=== PATIENT | male | born 1955 | race Caucasian/White ===

== ENCOUNTER 2022-03-19 19:08 | Emergency (ER) | payer MEDICARE, OTHER ==
[2022-03-19 20:01] VITALS: RESP 18; TEMP 97.7
[2022-03-19] MEDS ORDERED: LIDOCAINE 5% PATCH TOPICAL STA (20:27)
--- NOTE | 2022-03-19 20:33 | ED ---
General Adult HPI - General Chief complaint: Fall Stated complaint: Fal,rib injury,SOB Time Seen by Provider: 03/19/22 20:15 Source: patient, RN notes reviewed, old records reviewed Mode of arrival: ambulatory Limitations: no limitations - History of Present Illness Initial comments: Patient is a 66-year-old male with past medical history remarkable for diabetes, hypertension who presents in the department after mechanical fall. Patient states he tripped over the ventilation grate on the ground, and fell onto his right side. Landed on his right arm and chest. Landed on the ground inside his home. Denies hitting his head or experiencing loss of consciousness. Denies any back pain, abdominal pain, nausea, vomiting. Has been walking around ot [employer] since. His no other acute complaints. Presents emergency department today to be evaluated for possible rib injury or wrist injury. Denies loss conscious. His no blood thinners. Denies headache. Denies blurry vision. Presents for further evaluation at this time. Fall occurred shortly prior to arrival. - Related Data Home Medications Medication Instructions Recorded Confirmed Atenolol/Chlorthalidone 1 tab PO DAILY 12/01/13 12/01/13 [Atenolol/Chlorthalidone 100-25] Previous Rx's Medication Instructions Recorded metFORMIN HCL [Glucophage] 500 mg PO BID #60 tab 12/02/13 Lidocaine 5% Patch [Lidoderm 5% 1 patch TOPICAL DAILY PRN 7 Days 03/19/22 Patch] #7 patch Allergies Allergy/AdvReac Type Severity Reaction Status Date / Time No Known Allergies Allergy Verified 03/19/22 20:00 Review of Systems ROS Statement: Those systems with pertinent positive or pertinent negative responses have been documented in the HPI. Review of Systems: CONST: Denies fever EYES: Denies blurry vision ENT: Denies nasal congestion C/V: Denies Chest pain RESP: Denies shortness of breath GI: Denies abdominal pain : Denies dysuria SKIN: Denies rash. MSK: Endorses rib pain, wrist pain NEURO: Denies headache ROS Other: All systems not noted in ROS Statement are negative. Past Medical History Past Medical History: Hypertension, Myocardial Infarction ([place]) Additional Past Medical History / Comment(s): kidney stones, sciatica,spinal stenosis Last Myocardial Infarction Date:: unk History of Any Multi-Drug Resistant Organisms: None Reported Past Surgical History: Heart Catheterization Additional Past Surgical History / Comment(s): penile surgery as a child. Heart cath in 1992. Past Anesthesia/Blood Transfusion Reactions: No Reported Reaction Past Psychological History: Depression Smoking Status: Former smoker Past Alcohol Use History: Heavy Past Drug Use History: None Reported - Past Family History Mother Family Medical History: Dementia, Diabetes Mellitus General Exam - General Exam Comments Initial Comments: General: Appears in no acute distress. HEAD: Normal with no signs of head trauma. EYES: PERRLA, EOMI, conjunctiva normal, no discharge. Pupils 3 mm and equal bilaterally. ENT: Hearing grossly intact, normal oropharynx. RESPIRATORY: Clear breath sounds bilaterally. No wheezes, rales, or rhonchi. C/V: Regular rate and rhythm. S1 and S2 auscultated, no edema, peripheral pulses 2+ and intact throughout ABD: Abd is soft, nontender, nondistended EXT: Pelvis is stable. No spinal tenderness to palpation. There is tenderness to palpation over the anterior lateral inferior ribs. No skin changes. No flail chest. Patient is also tender over the right wrist, dorsal hand. No snuffbox tenderness to palpation. Neurovascularly intact throughout. SKIN: No rashes or lesions observed on exposed skin. NEURO: Alert and oriented x 4. Cranial nerves II-XII intact. No focal sensory or strength deficits. GCS is 15. Limitations: no limitations Course Vital Signs 03/19/22 03/19/22 19:58 22:09 Temperature 97.7 F Pulse Rate 65 72 Respiratory 18 18 Rate Blood Pressure 151/81 144/72 O2 Sat by Pulse 96 96 Oximetry Medical Decision Making - Medical Decision Making Based on the patient's presentation and physical exam, I'm concerned for possible musculoskeletal injury secondary to mechanical fall. I did recommend due to his age and fall, that we obtain a CT brain in addition to x-rays of the right upper extremity hand, wrist, forearm as well as the right ribs and chest. We'll also obtain a pelvic x-ray. He was in agreement this plan. Will be given a lidocaine patch for analgesia. Declines other analgesia at this time. Patient's CT brain shows no acute intracranial process but does show a slightly more enlarged cyst located near the foramen of Srinivasan. No evidence of hyd rocephalus. Pelvic x-ray is negative for acute fracture. Written chest x-ray shows no acute fracture. Right upper extremity x-rays revealed no acute injuries. After the patient the findings. Discussed he likely has a right wrist sprain as well as right rib contusion. Patient will be given an incentive spirometer as well as instructions to use it. He can his home [id number] analgesia medications as needed. He was in agreement this plan. Strict return precautions were discussed. Discussed icing his his wrist, ribs. I instructed the patient to follow up with their PCP in the next 1-3 days. I explained that the patient should return to the emergency department if they experience any worsening symptoms. Strict return precautions were discussed with the patient. The patient expressed understanding of these instructions. I answered all questions that the patient had. The patient was discharged home in good condition with their prescriptions and follow up information. Disposition Clinical Impression: Fall, Rib contusion, Right wrist sprain Disposition: HOME SELF-CARE Condition: Good Instructions (If sedation given, give patient instructions): How to Use an Incentive Spirometer (ED), Fall Prevention (ED), Wrist Sprain (ED), Rib Contusion (ED) Prescriptions: Lidocaine 5% Patch [Lidoderm 5% Patch] 1 patch TOPICAL DAILY PRN 7 Days #7 patch PRN Reason: Pain Is patient prescribed a controlled substance at d/c from ED?: No Referrals: None,Stated [Primary Care Provider] - 1-2 days Time of Disposition: 22:00
--- NOTE | 2022-03-19 21:25 | XR ---
EXAMINATION TYPE: XR hand complete RT DATE OF EXAM: 03/19/2022 9:01 PM INDICATION: Patient age:Male; 66 years old; Reason for study: fall, pain. COMPARISON: None TECHNIQUE: Frontal, lateral and oblique views of the right hand were obtained. FINDINGS: Normal alignment of the visualized joints. No acute osseous pathology is identified. No e vidence of soft tissue swelling. Well-corticated osseous body near the base of the first digit carpometacarpal joint felt to represent a chronic injury. IMPRESSION: No acute osseous pathology.
--- NOTE | 2022-03-19 21:28 | XR ---
EXAMINATION TYPE: XR forearm RT DATE OF EXAM: 03/19/2022 9:01 PM INDICATION: Patient age:Male; 66 years old; Reason for study: fall, pain; COMPARISON: None TECHNIQUE: The right forearm was examined in AP and lateral projections. FINDINGS: No acute osseous pathology, soft tissue swelling or joint dislocations are seen. IMPRESSION: No evidence of acute fracture.
--- NOTE | 2022-03-19 21:33 | CT ---
EXAMINATION TYPE: CT brain wo con CT DLP: 1202.4 mGycm, Automated exposure control for dose reduction was used. DATE OF EXAM: 03/19/2022 9:08 PM COMPARISON: 12/01/2013 CLINICAL INDICATION:Male, 66 years old with history of fall, TECHNIQUE: Brain: Axial CT images of the brain were obtained with coronal and sagittal reformats created and rev iewed. Contrast used: None. Oral contrast used: None. FINDINGS: Brain: Extra-axial spaces: No abnormal extra-axial fluid collections. Ventricular system: Increase in size of collecting system measuring up to 8 mm previously 6 mm locate d at the foramen of Srinivasan on the left. Cerebral parenchyma: No acute intraparenchymal hemorrhage or mass effect. The gomez-white junction is well differentiated. Cerebellum: Unremarkable. Mass effect: No evidence of midline shift. Intracranial vasculature: unremarkable Soft tissues: Normal. Calvarium/osseous structures: No depressed skull fracture. Paranasal sinuses and mastoid air cells: Mild scattered paranasal sinus disease. Visualized orbits: Orbital contents are intact. IMPRESSION: 1. No acute intracranial process. 2. 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 Previously 6 mm in 2013. No evidence of hydrocephalus.
--- NOTE | 2022-03-19 21:34 | XR ---
EXAMINATION TYPE: XR ribs RT w pa chest xray DATE OF EXAM: 03/19/2022 9:01 PM INDICATION: Patient age:Male; 66 years old; Reason for study: fall; PHH. COMPARISON: None TECHNIQUE: Frontal and oblique views of the right ribs with frontal chest radiograph. FINDINGS: The ribs have a normal appearance. No evidence of fracture. Overall, the lungs are clear. The cardiac silhouette is normal in size. The remaining osseous structures are intact. IMPRESSION: 1. No acute osseous pathology. 2. No definitive evidence for rib fracture.
--- NOTE | 2022-03-19 21:35 | XR ---
EXAMINATION TYPE: XR pelvis AP view DATE OF EXAM: 03/19/2022 9:01 PM INDICATION: Patient age:Male; 66 years old; Reason for study: fall; COMPARISON: Abdominal radiograph 04/22/2010, CT abdomen pelvis 04/22/2010. TECHNIQUE: The pelvis was examined in a single projection. FINDINGS: There is no evidence of fracture or dislocation. There is no soft tissue abnormality. No a bnormal calcifications are present. Multilevel degenerative changes of the lower spine. Calcification s project over the pelvis likely representing phleboliths. Mild degeneration changes of the hips bila terally with osteophyte formation and joint space narrowing. The more ovoid calcification seen projec ting over the right sacroiliac joint consistent with prior calcified granuloma in the buttock on prio r CT. IMPRESSION: 1. No acute osseous pathology. 2. Mild osteoarthrosis of the hips.
[2022-03-19 22:10] VITALS: BP 144/72; PULSE 72
== END 2022-03-19 22:10 | disposition home or self-care (01) ==
LOC: EC 19:08
DX: S20.20XA Contusion of thorax, unspecified, initial encounter (principal); S63.8X1A Sprain of other part of right wrist and hand, initial encounter; I10 Essential (primary) hypertension; I25.2 Old myocardial infarction; F32.A Depression, unspecified; Z87.891 Personal history of nicotine dependence; Z79.84 Long term (current) use of oral hypoglycemic drugs; Z79.899 Other long term (current) drug therapy; W01.0XXA Fall on same level from slipping, tripping and stumbling without subsequent striking against object, initial encounter
CPT/HCPCS: 70450; 72170; 99285

== ENCOUNTER 2024-04-07 18:48 | Emergency (ER) | payer MEDICARE, OTHER ==
[2024-04-07 18:55] VITALS: TEMP 97.9
--- NOTE | 2024-04-07 19:45 | ED ---
Alcohol HPI - General Chief Complaint: Fall Stated Complaint: Fall-back injury Time Seen by Provider: 04/07/24 19:04 Source: EMS, RN notes reviewed, old records reviewed Mode of arrival: EMS Limitations: no limitations - History of Present Illness Initial Comments: This is a 68-year-old male after a fall fall with doing with alcohol intoxication. 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) Previous Visits for Alcohol Intoxication?: Yes Recent Trauma: Yes Associated Symptoms: hematemesis Treatments Prior to Arrival: none, cervical collar, other Chronic Alcohol Use: Yes - Related Data Home Medications Medication Instructions Recorded Confirmed Atenolol/Chlorthalidone 1 tab PO DAILY 12/01/13 12/01/13 [Atenolol/Chlorthalidone 100-25] Previous Rx's Medication Instructions Recorded metFORMIN HCL [Glucophage] 500 mg PO BID #60 tab 12/02/13 Lidocaine 5% Patch [Lidoderm 5% 1 patch TOPICAL DAILY PRN 7 Days 03/19/22 Patch] #7 patch Allergies Allergy/AdvReac Type Severity Reaction Status Date / Time No Known Allergies Allergy Verified 04/07/24 18:55 Review of Systems ROS Statement: Those systems with pertinent positive or pertinent negative responses have been documented in the HPI. ROS Other: All systems not noted in ROS Statement are negative. Past Medical History Past Medical History: Hypertension, Myocardial Infarction ([place]) Additional Past Medical History / Comment(s): kidney stones, sciatica,spinal stenosis Last Myocardial Infarction Date:: unk History of Any Multi-Drug Resistant Organisms: None Reported Past Surgical History: Heart Catheterization Additional Past Surgical History / Comment(s): penile surgery as a child. Heart cath in 1992. Past Anesthesia/Blood Transfusion Reactions: No Reported Reaction Past Psychological History: Depression Smoking Status: Former smoker Past Alcohol Use History: Heavy Past Drug Use History: None Reported - Past Family History Mother Family Medical History: Dementia, Diabetes Mellitus General Exam Limitations: no limitations General appearance: appears intoxicated, anxious Head exam: Present: atraumatic, normocephalic, normal inspection Eye exam: Present: normal appearance, PERRL, EOMI. Absent: scleral icterus, conjunctival injection, periorbital swelling ENT exam: Present: normal exam, mucous membranes moist Neck exam: Present: normal inspection. Absent: tenderness, meningismus, lymphadenopathy Respiratory exam: Present: normal lung sounds bilaterally. Absent: respiratory distress, wheezes, rales, rhonchi, stridor Cardiovascular Exam: Present: regular rate, normal rhythm, normal heart sounds. Absent: systolic murmur, diastolic murmur, rubs, gallop, clicks GI/Abdominal exam: Present: soft, normal bowel sounds. Absent: distended, tenderness, guarding, rebound, rigid Extremities exam: Present: normal inspection, full ROM, normal capillary refill. Absent: tenderness, pedal edema, joint swelling, calf tenderness Back exam: Present: normal inspection Neurological exam: Present: alert, oriented X3, CN II-XII intact Psychiatric exam: Present: normal affect, normal mood Skin exam: Present: warm, dry, intact, normal color. Absent: rash Course Vital Signs 04/07/24 04/07/24 04/07/24 18:50 20:27 22:13 Temperature 97.9 F Pulse Rate 76 69 86 Respiratory 20 18 15 Rate Blood Pressure 128/75 128/85 140/79 O2 Sat by Pulse 95 99 98 Oximetry - Reevaluation(s) Reevaluation #1: 04/07/24 19:51 Medical records reviewed Reevaluation #2: 04/07/24 21:32 Patient symptoms improved Reevaluation #3: 04/07/24 21:32 Patient informed of results and questions answered Reevaluation #4: Was pt. sent in by a medical professional or institution (, PA, [facility], urgent care, hospital, or shelter...) When possible be specific @ -no Did you speak to anyone other than the patient for history (EMS, parent, family, police, friend...)? What history was obtained from this source @ -no Did you review nursing and triage notes (agree or disagree)? Why? @ -agree Are old charts reviewed (outside hosp., previous admission, EMS record, old EKG, old radiological studies, urgent care reports/EKG's, shelter records)? Report findings @ -yes Differential Diagnosis (chest pain, altered mental status, abdominal pain women, abdominal pain men, vaginal bleeding, weakness, fever, dyspnea, syncope, headache, dizziness, GI bleed, back pain, seizure, CVA, palpatations, mental health, musculoskeletal)? @ -prior EKG interpreted by me (3pts min.). @ -yes X-rays interpreted by me (1pt min.). @ -yes negative for acute disease CT interpreted by me (1pt min.). @ -Yes negative for acute disease U/S interpreted by me (1pt. min.). @ -no What testing was considered but not performed or refused? (CT, X-rays, U/S, labs)? Why? @ -none What meds were considered but not given or refused? Why? @ -none Did you discuss the management of the patient with other professionals (professionals i.e. , PA, [facility], lab, RT, psych nurse, long term care social worker, rehabilitation program manager, teacher, guest relations officer, child welfare caseworker)? Give summary @ -no Was smoking cessation discussed for >3mins.? @ -no Was critical care preformed (if so, how long)? @ -no Were there social determinants of health that impacted care today? How? (Homelessness, low income, unemployed, alcoholism, drug addiction, transportation, low edu. Level, literacy, decrease access to med. care, skilled nursing, rehab)? @ -none Was there de-escalation of care discussed even if they declined (Discuss DNR or withdrawal of care, Hospice)? DNR status @ -no What co-morbidities impacted this encounter? (DM, HTN, Smoking, COPD, CAD, Cancer, CVA, ARF, Chemo, Hep., AIDS, mental health diagnosis, sleep apnea, morbid obesity)? @ -none Was patient admitted / discharged? Hospital course, mention meds given and route, prescriptions, significant lab abnormalities, going to OR and other pertinent info. @ - 68 male to the ER for evaluation of alcohol intoxication and fall. No acute traumatic injury noted patient can be discharged home Discharge Undiagnosed new problem with uncertain prognosis? @ -no Drug Therapy requiring intensive monitoring for toxicity (Heparin, Nitro, Insulin, Cardizem)? @ -no Were any procedures done? @ -no Diagnosis/symptom? @ -Alcohol intoxication Acute, or Chronic, or Acute on Chronic? @ -Acute Uncomplicated (without systemic symptoms) or Complicated (systemic symptoms)? @ -Complicated Side effects of treatment? @ -no Exacerbation, Progression, or Severe Exacerbation? @ -exacerbation Poses a threat to life or bodily function? How? (Chest pain, USA, MT, pneumonia, PE, COPD, DKA, ARF, appy, cholecystitis, CVA, Diverticulitis, Homicidal, Suicidal, threat to staff... and all critical care pts) @ -yes extremes of age Medical Decision Making - Medical Decision Making 68 male to the ER for evaluation of alcohol intoxication and fall. No acute traumatic injury noted patient can be discharged home - Lab Data Result diagrams: 04/07/24 20:07 04/07/24 20:07 Lab Results 04/07/24 04/07/24 Range/Units 20:07 20:07 WBC 9.3 (3.8-10.6) k/uL RBC 4.51 (4.30-5.90) m/uL Hgb 14.6 (13.0-17.5) gm/dL Hct 42.9 (39.0-53.0) % MCV 95.1 (80.0-100.0) fL MCH 32.3 (25.0-35.0) pg MCHC 34.0 (31.0-37.0) g/dL RDW 12.8 (11.5-15.5) % Plt Count 200 (150-450) k/uL MPV 7.1 Neutrophils % 73 % Lymphocytes % 19 % Monocytes % 6 % Eosinophils % 1 % Basophils % 0 % Neutrophils # 6.8 (1.3-7.7) k/uL Lymphocytes # 1.8 (1.0-4.8) k/uL Monocytes # 0.5 (0-1.0) k/uL Eosinophils # 0.1 (0-0.7) k/uL Basophils # 0.0 (0-0.2) k/uL Sodium 130 L (137-145) mmol/L Potassium 3.1 L (3.5-5.1) mmol/L Chloride 91 L (98-107) mmol/L Carbon Dioxide 21 L (22-30) mmol/L Anion Gap 18 mmol/L BUN 6 L (9-20) mg/dL Creatinine 0.50 L (0.66-1.25) mg/dL Est GFR (CKD-EPI)AfAm >90 (>60 ml/min/1.73 sqM) Est GFR (CKD-EPI)NonAf >90 (>60 ml/min/1.73 sqM) Glucose 185 H (74-99) mg/dL Calcium 9.7 (8.4-10.2) mg/dL Phosphorus 3.4 (2.5-4.5) mg/dL Magnesium 1.4 L (1.6-2.3) mg/dL Total Bilirubin 1.2 (0.2-1.3) mg/dL AST 45 (17-59) U/L ALT 27 (4-49) U/L Alkaline Phosphatase 56 (38-126) U/L Total Protein 7.6 (6.3-8.2) g/dL Albumin 4.5 (3.5-5.0) g/dL Lipase 157 (23-300) U/L Serum Alcohol 222 H* mg/dL - Radiology Data Radiology results: report reviewed (CT brain C-spine chest and pelvis negative for acute disease), image reviewed Disposition Clinical Impression: Fall, Pre-syncope, Alcohol intoxication Disposition: HOME SELF-CARE Condition: Good Instructions (If sedation given, give patient instructions): Fall Prevention for Older Adults (ED), Alcohol Intoxication (ED) Is patient prescribed a controlled substance at d/c from ED?: No Referrals: Candi Jackson MD [Primary Care Provider] - 1-2 days Time of Disposition: 21:30
--- NOTE | 2024-04-07 19:45 | CT ---
EXAMINATION TYPE: CT brain griffin mix DATE OF EXAM: 04/07/2024 COMPARISON: None HISTORY: Pt presents after a fall down 2 steps, no LOC, no thinners. CT DLP: 1600.7 mGycm, Automated exposure control for dose reduction was used. CONTRAST: Patient injected with mL of . CT of the brain is performed utilizing 3 mm thick sections through the posterior fossa and 3 mm thick sections through the remaining calvarium. Study is performed within 24 hours of arrival to the hospital. There is a hyperdense area near the foramen of Monro measuring 1.2 x 1.2 cm. Third ventricle is prom inent. No temporal horn dilatation is evident. This is larger than comparison. Colloid cyst may be pr esent. Hemorrhage is felt to be unlikely without hemorrhage elsewhere within the ventricles or brain. However, follow-up due to interval growth is recommended with MRI. No mass lesion is evident. No acute infarcts are evident. There may be old inferior medial occipital lobe infarct. Extra-axial spaces are prominent especially through the posterior parietal and occipital regions Ventricles and sulci are appropriate for the patient age. Paranasal sinuses and mastoid air cells within the [id number] are clear. IMPRESSIONS: 1. There is a 1.2 cm hyperdense area may be a colloid cyst at the foramen of Monro. This has increase d in size from 0.8 cm in 2021. Additional workup with MRI is recommended. Report was called to emerge ncy room physician by Dr. Ahumada by telephone at the time of interpretation. 2. Atrophy. Prior inferior medial occipital lobe infarcts could be considered within the differential . CT cervical spine. COMPARISON: None CT of the cervical spine is performed in the axial plane at 2 mm thick sections. Reconstructed image s in the coronal, and sagittal plane are reviewed on the computer. No acute fractures are evident. Vertebral body alignment is normal. Diffuse loss of disc height is present greater in the mid to lower cervical spine. Vertebral body heights are preserved. Posterior endplate spurring is present C3-4 C4-5 C5-6. Some right paracentral spurring is contributin g to spinal canal stenosis at the C5-6 level. Bilateral foraminal stenosis is present No neural foraminal stenosis is evident. Large anterior vertebral body spurs are present throughout the cervical spine. IMPRESSION: 1. Some spinal canal narrowing posterior to endplate spurring at C5-6. 2. No acute osseous abnormality cervical spine. [facility], Workstation: [facility], 04/07/2024 7:43 PM
[2024-04-07 20:18] LABS: Basophils % (A) 0 %; Eosinophils # (A) 0.1 k/uL (0-0.7); Eosinophils % (A) 1 %; HCT 42.9 % (39.0-53.0); HGB 14.6 gm/dL (13.0-17.5); Lymphocytes # (A) 1.8 k/uL (1.0-4.8); Lymphocytes % (A) 19 %; MCH 32.3 pg (25.0-35.0); MCV 95.1 fL (80.0-100.0); Mean Platelet Volume 7.1; Monocytes # (A) 0.5 k/uL (0-1.0); Monocytes % (A) 6 %; Neutrophils # (A) 6.8 k/uL (1.3-7.7); Neutrophils % (A) 73 %; Platelet Count 200 k/uL (150-450); RBC 4.51 m/uL (4.30-5.90); RDW 12.8 % (11.5-15.5); WBC 9.3 k/uL (3.8-10.6)
[2024-04-07] MEDS: MORPHINE SULFATE 4 MG/ML SYRINGE IVP STA (20:26)
[2024-04-07] MEDS: SODIUM CHLORIDE 0.9% 1,000 ML IV STA (20:27)
[2024-04-07 20:29] LABS: ALT 27 U/L (4-49); AST 45 U/L (17-59); African American GFR (CKD) >90 (>60 ml/min/1.73 sqM); Albumin 4.5 g/dL (3.5-5.0); Alkaline Phosphatase 56 U/L (38-126); Anion Gap 18 mmol/L; Blood Urea Nitrogen 6 mg/dL (9-20); Calcium 9.7 mg/dL (8.4-10.2); Carbon Dioxide 21 mmol/L (22-30); Chloride 91 mmol/L (98-107); Glucose 185 mg/dL (74-99); Lipase 157 U/L (23-300); Magnesium 1.4 mg/dL (1.6-2.3); Non-African American GFR(CKD) >90 (>60 ml/min/1.73 sqM); Potassium 3.1 mmol/L (3.5-5.1); Sodium 130 mmol/L (137-145); Total Bilirubin 1.2 mg/dL (0.2-1.3); Total Protein 7.6 g/dL (6.3-8.2)
[2024-04-07 20:53] LABS: Alcohol 222 mg/dL
[2024-04-07 21:01] LABS: Phosphorus 3.4 mg/dL (2.5-4.5)
--- NOTE | 2024-04-07 21:17 | XR ---
EXAMINATION TYPE: XR chest 1V DATE OF EXAM: 04/07/2024 COMPARISON: 03/19/2022 INDICATION: Pain TECHNIQUE: Single frontal view of the chest is obtained. FINDINGS: The heart size is normal. The pulmonary vasculature is normal. The lungs are clear. Chest is examined in the frontal AP view. IMPRESSION: 1. No acute pulmonary process. [facility], Workstation: [facility], 04/07/2024 9:15 PM
--- NOTE | 2024-04-07 21:19 | XR ---
EXAMINATION TYPE: XR pelvis AP view DATE OF EXAM: 04/07/2024 COMPARISON: 03/19/2022 HISTORY: Pain fall down stairs TECHNIQUE: AP pelvis FINDINGS: Femoral heads articulate with the acetabulum. Joint spaces are mildly narrowed. Symphysis p ubis and sacroiliac joints are patent. Normal colonic bowel gas is present. Calcification at the right iliac crest remains present and stabl e in size measuring 2.2 cm. IMPRESSION: 1. No acute posttraumatic changes AP pelvis [facility], Workstation: [facility], 04/07/2024 9:16 PM
[2024-04-07 22:15] VITALS: BP 140/79; PULSE 86; RESP 15
== END 2024-04-07 22:15 | disposition home or self-care (01) ==
LOC: EC 18:48
DX: F10.129 Alcohol abuse with intoxication, unspecified (principal); R55 Syncope and collapse; Z87.891 Personal history of nicotine dependence; W19.XXXA Unspecified fall, initial encounter; Y90.7 Blood alcohol level of 200-239 mg/100 ml
CPT/HCPCS: 36415; 80053; 83690; 83735; 84100; 85025; 72170; 71045; 72125; 70450; 99284; 96374; 96361 ×2; G0480; J2270; 80320